=== PATIENT | male | born 1955 | race Caucasian/White ===

== ENCOUNTER 2017-01-20 07:17 | Outpatient (CLI) | payer BC, OTHER ==
[2017-01-20 12:36] LABS: BASOPHILS # (AUTO) 0.1 10^3/uL (0.0-0.1); BASOPHILS % (AUTO) 1.3 %; EOSINOPHILS # (AUTO) 0.3 10^3/uL (0.0-0.7); EOSINOPHILS % (AUTO) 5.5 %; HCT - HEMATOCRIT 43.4 % (42.0-52.0); HGB - HEMOGLOBIN 15.1 g/dL (14.0-18.0); LYMPHOCYTES # (AUTO) 1.9 10^3/uL (1.5-3.5); LYMPHOCYTES % (AUTO) 30.4 %; MEAN CORPUSCULAR HEMOGLOBIN 31.9 pg (27.0-31.0); MEAN CORPUSCULAR HGB CONC 34.8 g/dL (32.0-36.0); MEAN CORPUSCULAR VOLUME 91.7 fL (80.0-94.0); MEAN PLATELET VOLUME 8.2 fL (7.4-11.4); MONOCYTES # (AUTO) 0.5 10^3/uL (0.0-1.0); MONOCYTES % (AUTO) 8.3 %; NEUTROPHILS # (AUTO) 3.4 10^3/uL (1.5-6.6); NEUTROPHILS % (AUTO) 54.5 %; NUCLEATED RED BLOOD CELLS AUTO 0.2 /100WBC; RED BLOOD COUNT 4.73 10^6/uL (4.70-6.10); RED CELL DISTRIBUTION WIDTH 12.4 % (12.0-15.0); UNCORRECTED WHITE BLOOD COUNT 6.3 x10^3/uL; WHITE BLOOD COUNT 6.3 x10^3/uL (4.8-10.8)
[2017-01-20 12:51] LABS: ALBUMIN/GLOBULIN RATIO 1.4 (1.0-2.2); BILIRUBIN,TOTAL 0.7 mg/dL (0.2-1.0); CALCIUM 8.8 mg/dL (8.5-10.3); CREATININE 0.8 mg/dL (0.6-1.2); POTASSIUM 4.6 mmol/L (3.5-5.0); TOTAL PROTEIN 7.2 g/dL (6.7-8.2)
[2017-01-20 13:41] LABS: HEMOGLOBIN A1C 0.7 g/dL
== END 2017-01-20 07:18 | disposition home or self-care (01) ==
LOC: LAB.WCP 07:17
PROVIDERS: ATTEND Family Medicine
DX: R73.9 Hyperglycemia, unspecified (principal); Z79.01 Long term (current) use of anticoagulants; I10 Essential (primary) hypertension; Z12.5 Encounter for screening for malignant neoplasm of prostate
CPT/HCPCS: 36415; 80053; 83036; 84153; 85025

== ENCOUNTER 2017-05-19 14:36 | Outpatient (CLI) | payer BC | END 2017-05-19 14:37 | disposition critical access hospital (66) | LOC: EMS 14:36 | PROVIDERS: ATTEND Surgery | DX: R53.1 Weakness (principal); R46.4 Slowness and poor responsiveness | CPT/HCPCS: A0425; A0427 ==

== ENCOUNTER 2017-05-19 14:54 | Observation (INO) | payer BC ==
[2017-05-19] MEDS ORDERED: DEXAMETHASONE 10 MG/ML VIAL IVP STA (15:01)
[2017-05-19] MEDS ORDERED: SODIUM CHLORIDE 0.9% 1,000 ML IV ONE ×3 (15:01→16:18)
[2017-05-19 15:21] LABS: BASOPHILS % (AUTO) 0.4 %; EOSINOPHILS # (AUTO) 0.1 10^3/uL (0.0-0.7); EOSINOPHILS % (AUTO) 1.5 %; HGB - HEMOGLOBIN 15.8 g/dL (14.0-18.0); LYMPHOCYTES # (AUTO) 2.6 10^3/uL (1.5-3.5); LYMPHOCYTES % (AUTO) 25.6 %; MEAN CORPUSCULAR HEMOGLOBIN 30.3 pg (27.0-31.0); MEAN CORPUSCULAR HGB CONC 33.3 g/dL (32.0-36.0); MEAN CORPUSCULAR VOLUME 90.8 fL (80.0-94.0); MEAN PLATELET VOLUME 7.5 fL (7.4-11.4); MONOCYTES # (AUTO) 0.3 10^3/uL (0.0-1.0); MONOCYTES % (AUTO) 2.9 %; NEUTROPHILS # (AUTO) 6.9 10^3/uL (1.5-6.6); NEUTROPHILS % (AUTO) 69.6 %; PLT - PLATELET COUNT 326 10^3/uL (130-450); RED BLOOD COUNT 5.21 10^6/uL (4.70-6.10)
[2017-05-19 15:25] LABS: CALCIUM 8.5 mg/dL (8.5-10.3); CREATININE 1.5 mg/dL (0.6-1.2)
--- NOTE | 2017-05-19 15:41 | ED Physician Documentation ---
History of Present Illness - Stated complaint Stated Complaint: ALLERGIC REACTION - Chief complaint Chief Complaint: Allergic Rx - Additonal information Additional information: hx from pt and EMS fairly healthy 62 male was feeling finer earlier working outside clearing bushes and felt faint laid down no fall no CP or palp or dyspnea just sleepy and weak all over 911 called and EMS found pt with diffuse erythematous rash and some hives to posterior left arm, no airway swelling EMS gave epi and benadryl 50 and i L NS for presumed anaphyalxis ate a normal lunch no new dif food, no recent med changes no bites or stings no hx same arrives BP now over 100 in a fib RVR approx 120 he has a hx of DVT and is on couamdin Review of Systems Constitutional: denies: Fever, Chills Cardiac: denies: Chest pain / pressure, Palpitations Respiratory: denies: Dyspnea Skin: reports: Rash Neurologic: reports: Near syncope. denies: Focal weakness, Numbness, Headache, Head injury Endocrine: denies: Easy bruising / bleeding Immunocompromised: denies: Immunocompromised PD PAST MEDICAL HISTORY - Present Medications Home Medications: Ambulatory Orders Medication Instructions Recorded Confirmed Lisinopril 10 mg PO DAILY 05/19/17 05/19/17 Multivitamin [Theragran] 1 tab PO Q2D 05/19/17 05/19/17 Warfarin [Coumadin] 7.5 mg PO DAILY 05/19/17 05/19/17 - Allergies Allergies/Adverse Reactions: Allergies Allergy/AdvReac Type Severity Reaction Status Date / Time No Known Drug Allergies Allergy Verified 05/19/17 15:09 PD ED PE NORMAL - Vitals Vital signs reviewed: Yes - General General: Alert and oriented X 3 - HEENT HEENT: PERRL, Other (no oral edema). No: Moist mucous membranes (very dry) - Neck Neck: Supple, no meningeal sign - Cardiac Cardiac: RRR - Respiratory Respiratory: No respiratory distress, Clear bilaterally, Other (no wheeze) - Abdomen Abdomen: Soft, Non tender - Derm Derm: Other (diffuse erytehma to rorsoa, splthcy erythema to ext, some small hives to L upper arm, no insect stingers aor apparent bites found) - Neuro Neuro: Alert and oriented X 3 Results - Vitals Vitals: Vital Signs - 24 hr 05/19/17 05/19/17 05/19/17 15:01 15:23 15:31 Temperature 36.0 C L Heart Rate 117 H 124 H 125 H Respiratory 18 15 18 Rate Blood Pressure 106/61 98/67 92/59 L O2 Saturation 99 98 97 05/19/17 05/19/17 05/19/17 15:44 15:59 16:19 Temperature Heart Rate 127 H 121 H 126 H Respiratory 17 17 18 Rate Blood Pressure 105/58 L 116/90 H 100/68 O2 Saturation 97 96 98 Oxygen O2 Source Nasal cannula - EKG (time done) 1502 Rate: Rate (enter#) (102) Rhythm: Atrial fibrillation Ischemia: Normal ST segments - Labs Labs: Laboratory Tests 05/19/17 05/19/17 05/19/17 15:11 15:11 15:11 WBC 10.0 RBC 5.21 Hgb 15.8 Hct 47.3 MCV 90.8 MCH 30.3 MCHC 33.3 RDW 13.0 Plt Count 326 MPV 7.5 Neut # 6.9 H Lymph # 2.6 [place] # 0.3 Eos # 0.1 Baso # 0.0 Absolute Nucleated RBC 0.01 Nucleated RBC % 0.1 PT INR Sodium 137 Potassium 3.3 L Chloride 103 Carbon Dioxide 21 Anion Gap 13.0 BUN 20 Creatinine 1.5 H Estimated GFR (MDRD) 47 L Glucose 173 H Lactic Acid Calcium 8.5 Troponin I < 0.04 05/19/17 05/19/17 15:11 16:40 WBC RBC Hgb Hct MCV MCH MCHC RDW Plt Count MPV Neut # Lymph # [place] # Eos # Baso # Absolute Nucleated RBC Nucleated RBC % PT 33.1 H INR 3.1 H Sodium Potassium Chloride Carbon Dioxide Anion Gap BUN Creatinine Estimated GFR (MDRD) Glucose Lactic Acid 1.4 Calcium Troponin I - Rads (name of study) CXR Radiology: See rad report (NACPD) PD MEDICAL DECISION MAKING - ED course ED course: pt does have a rash - but no airway swelling or known trigger may well be anaphylaxis but in apparently new a fib and persistently hypotensive after epi benadyrl steroids his rash did resolve in ER which bolsters probability of anaphylaxis concern for alternate cause such as PE sepsis ACS etc INR 3.1 so doubt PE - GFR too low for CTPA CXR neg lactate neg so doubt sepsis neg trop pt does not feel palp so not clear if a fib is new today or just newly noted - so would want echo and cardio iinpur prior to considering cardioversion - in already on coumadin so should be sfe from anticoag point of view in any case 62 male with near syncope hypotension and new onset/noted a fib and possibly anaphyalaxis BP bewtter after 3 L NS now over 100, HR 120 but can't give rate control until BP higher still no CP SOA etc - stable - not emergently needing cardioversion or rate control will admit for echo and further cardiac work up as well as continued obs for anaphylaxis after receiving epi Departure - Departure Disposition: ED Place in Observation Clinical Impression: Atrial fibrillation with RVR, Near syncope Hypotension Qualifiers: Hypotension type: unspecified hypotension type Qualified Code(s): I95.9 - Hypotension, unspecified Anaphylaxis Qualifiers: Encounter type: initial encounter Qualified Code(s): T78.2XXA - Anaphylactic shock, unspecified, initial encounter Condition: Fair
[2017-05-19 15:57] LABS: INR 3.1 (0.8-1.2); PT - PROTHROMBIN TIME 33.1 secs (9.9-12.6)
--- NOTE | 2017-05-19 16:05 | XRAY Report ---
EXAM: CHEST RADIOGRAPHY EXAM DATE: 05/19/2017 03:53 PM. CLINICAL HISTORY: Hypotension. COMPARISON: 12/22/2007. TECHNIQUE: 1 view. FINDINGS: Lungs/Pleura: No focal opacities evident. No pleural effusion. No pneumothorax. Mediastinum: Within exam limitations, the cardiomediastinal contour is normal. Other: None. IMPRESSION: No acute cardiopulmonary abnormality. [facility] Referring Provider Line: [phone] SITE ID: [id number]
[2017-05-19] MEDS ORDERED: PROCHLORPERAZINE 10 MG/2 ML VIAL IVP PRN (17:41)
[2017-05-19] MEDS ORDERED: SODIUM CHLORIDE FLUSH 0.9% 10 ML SYRINGE IVP PRN (17:41)
[2017-05-19] MEDS ORDERED: oxyCODONE 5 MG TABLET PO PRN (17:41)
[2017-05-19] MEDS ORDERED: TEMAZEPAM 15 MG CAPSULE PO PRN (17:41)
--- NOTE | 2017-05-19 18:41 | HISTORY & PHYSICAL EXAMINATION ---
Chief Complaint - Chief Complaint Chief Complaint: Weakness and dizziness History of Present Illness - Admitted From Admitted From:: Work - History of Present Illness HPI Comment/Other: Mr. 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 Around the same time he also began to feel lightheaded and laid down. After this failed to improve things he was taken via EMS to the [facility] emergency department where he was found to be in atrial fibrillation with a rapid ventricular response between 110 and 120. This is new onset. While he was being transported in with EMS they gave him epinephrine for his rash and this did clear. He was mildly hypotensive, and this combined with the new onset atrial fibrillation with rapid ventricular response suggested that it would be prudent to admit him for observation overnight in telemetry bed. Of note is that the patient has a history of DVT and is already anticoagulated with an INR of 3. 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 : reports: None HEENT: reports: None Psych: reports: None Musculoskeletal: reports: None Derm: reports: None MRSA Hx?: No - Past Surgical History Cardiovascular: reports: Other (Surgical Retrieval of blood clots in his right foot) - Family & Social History Family History: Mother: , Cancer, Father: , [place] Living arrangement: At home Living Situation: Alone - Substance History Use: Uses substance without health or social issues: Tobacco Abuse 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 denies: Fever, Chills, Malaise, Diaphoresis - Eyes Eyes: denies: Pain, Irritation, Blurred vision, Dipolpia - Ears, Nose & Throat Ears, Nose & Throat: denies: Ear pain, Hearing loss, Hearing aids, Tinnitus, Vertigo, Nasal pain, Nasal discharge - Cardiovascular Cariovascular: reports: Irregular heart rate, Palpitations. denies: Chest pain , Edema, Lightheadedness, Syncope - Respiratory Respiratory: reports: SOB with exertion. denies: Cough, Sputum production, Wheezing, Hemoptysis, Orthopnea - Gastrointestinal Gastrointestinal: denies: Abdominal pain, Abdominal distention, Constipation, Diarrhea, Change in bowel habits, Rectal bleeding - Genitourinary Genitourinary: denies: Dysuria, Frequency, Urgency, Hematuria - Musculoskeletal Musculoskeletal: denies: Muscle pain, Back pain, Muscle aches, Stiffness - Integumentary Integumentary: reports: Rash. denies: Pruritis, Lesions, Acne - Neurological Neurological: denies: General weakness, Focal weakness, Headache, Dizziness - Psychiatric Psychiatric: denies: Depression, Anxiety, Suicidal, Hallucinations - Endocrine Endocrine: denies: Polyuria, Polydypsia, Polyphagia - Hematologic/Lymphatic Hematologic/Lymphatic: denies: Anemia, Bruising, Lymphadenopathy - All Other Systems All Other Systems: reports: Reviewed and negative Exam - Vital Signs Reviewed Vital Signs: Yes Vital Signs: Vital Signs x48h Pulse Resp BP Pulse Ox 05/19/17 17:51 100 16 138/79 H 96 - Physical Exam General Appearance: positive: No acute distress, Alert Eyes Bilateral: positive: Normal inspection, PERRL, EOMI ENT: positive: ENT inspection nml, Pharynx nml, No signs of dehydration Neck: positive: Nml inspection, Thyroid nml, No JVD, Trachea midline. negative : Thyromegaly Respiratory: positive: Chest non-tender, No respiratory distress, Breath sounds nml. negative: Wheezes, Rales, Rhonchi Cardiovascular: positive: No murmur, No gallop, Irregularly irregular Peripheral Pulses: positive: 1+ Abdomen: positive: Non-tender, No organomegaly, Nml bowel sounds, No distention. negative: Guarding, Rebound Back: positive: Nml inspection. negative: CVA tenderness (R), CVA tenderness (L ) Skin: positive: Color nml, No rash, Warm, Dry. negative: Cyanosis Extremities: positive: Non-tender, Full ROM, Nml appearance, No pedal edema Neurologic/Psychiatric: positive: Oriented x3, CN's nml (2-12), Motor nml, Sensation nml, Mood/affect nml Conclusion/Plan - Problem List (1) Atrial fibrillation with RVR Conclusion/Plan: Unsure of etiology or duration. The patient is coincidentally already anticoagulated because of his long history of DVT.We will admit him to a telemetry bed and monitor him overnight and give him a calcium channel kenji to slow his heart rate down. (2) Near syncope Conclusion/Plan: Almost definitely secondary to the new onset atrial fibrillation and associated hypotension (3) Hypotension Conclusion/Plan: Improving, will continue with IV fluids Qualifiers: Hypotension type: unspecified hypotension type Qualified Code(s): I95.9 - Hypotension, unspecified - Lab Results Lab results reviewed: Yes Fish Bones: 05/19/17 15:11 05/19/17 15:11 - Diagnostic Imaging Results Diagnostic Imaging Results: positive: Final report reviewed Diagnostic Imaging Results Comments: EXAM: CHEST RADIOGRAPHY EXAM DATE: 05/19/2017 03:53 PM. CLINICAL HISTORY: Hypotension. COMPARISON: 12/22/2007. TECHNIQUE: 1 view. FINDINGS: Lungs/Pleura: No focal opacities evident. No pleural effusion. No pneumothorax. Mediastinum: Within exam limitations, the cardiomediastinal contour is normal. Other: None. IMPRESSION: No acute cardiopulmonary abnormality. - EKG Results EKG Interpreted Independently: Yes EKG Comparison: Old EKG unavailable EKG Findings: Atrial fibrillation with rapid ventricular response Core Measures - Anticipated LOS I expect patient to be DC'd or transferred within 96 hours.: Yes - DVT/VTE - Prophylaxis VTE/DVT Device ordered at admit?: No VTE/DVT Prophylaxis med ordered at admit?: Yes
[2017-05-19 20:08] LABS: MUDS CUTOFF CONCENTRATIONS CUTOFF CONC BELOW:
[2017-05-19 20:10] LABS: BILIRUBIN,URINE NEGATIVE (NEGATIVE); GLUCOSE, URINE (UA) NEGATIVE (NEGATIVE); KETONES,URINE (UA) NEGATIVE (NEGATIVE); LEUKOCYTE ESTERASE, URINE NEGATIVE (NEGATIVE); NITRITE,URINE NEGATIVE (NEGATIVE); OCCULT BLOOD,URINE NEGATIVE (NEGATIVE); PROTEIN,URINE NEGATIVE (NEGATIVE); UROBILINOGEN,URINE 0.2 (NORMAL) E.U./dL (NORMAL)
[2017-05-19] MEDS: D5.45NS W/20 MEQ KCL 1,000 ML IV SCH (20:12)
[2017-05-19 20:14] LABS: CLARITY,URINE CLEAR (CLEAR)
[2017-05-19 20:20] LABS: AMPHETAMINE SCREEN,URINE NEGATIVE (NEGATIVE); BENZODIAZEPINES SCREEN, URINE NEGATIVE (NEGATIVE); COCAINE SCREEN URINE NEGATIVE (NEGATIVE); METHADONE SCREEN, URINE NEGATIVE (NEGATIVE); METHAMPHETAMINES SCREEN, URINE NEGATIVE (NEGATIVE); OPIATE SCREEN, URINE NEGATIVE (NEGATIVE); OXYCODONE SCREEN, URINE NEGATIVE (NEGATIVE); PROPOXYPHENE SCREEN, URINE NEGATIVE (NEGATIVE); TRICYCLIC ANTIDEPRESSANT,URINE NEGATIVE (NEGATIVE)
[2017-05-19] MEDS: SODIUM CHLORIDE FLUSH 0.9% 10 ML SYRINGE IVP SCH (20:27)
[2017-05-20] MEDS: SODIUM CHLORIDE FLUSH 0.9% 10 ML SYRINGE IVP SCH ×2 (05:26→14:20)
[2017-05-20] MEDS: D5.45NS W/20 MEQ KCL 1,000 ML IV SCH (07:36)
[2017-05-20] MEDS ORDERED: FAMOTIDINE 20 MG TABLET PO SCH (09:00)
[2017-05-20] MEDS ORDERED: LISINOPRIL 5 MG TABLET PO SCH (09:00)
[2017-05-20] MEDS ORDERED: ENOXAPARIN 40 MG/0.4 ML SYRINGE SUBQ SCH (09:00)
[2017-05-20] MEDS ORDERED: POLYETHYLENE GLYCOL 3350 17 GM PACKET PO SCH (09:00)
[2017-05-20 09:08] LABS: BASOPHILS # (AUTO) 0.1 10^3/uL (0.0-0.1); BASOPHILS % (AUTO) 0.9 %; EOSINOPHILS % (AUTO) 0.2 %; LYMPHOCYTES # (AUTO) 1.2 10^3/uL (1.5-3.5); LYMPHOCYTES % (AUTO) 10.4 %; MEAN CORPUSCULAR HEMOGLOBIN 31.2 pg (27.0-31.0); MEAN CORPUSCULAR HGB CONC 33.4 g/dL (32.0-36.0); MEAN CORPUSCULAR VOLUME 93.5 fL (80.0-94.0); MEAN PLATELET VOLUME 7.7 fL (7.4-11.4); MONOCYTES # (AUTO) 0.5 10^3/uL (0.0-1.0); NEUTROPHILS # (AUTO) 10.2 10^3/uL (1.5-6.6); NEUTROPHILS % (AUTO) 84.5 %; PLT - PLATELET COUNT 303 10^3/uL (130-450); RED BLOOD COUNT 4.49 10^6/uL (4.70-6.10); RED CELL DISTRIBUTION WIDTH 13.5 % (12.0-15.0)
[2017-05-20 09:11] LABS: CALCIUM 8.2 mg/dL (8.5-10.3); CREATININE 0.9 mg/dL (0.6-1.2)
[2017-05-20 09:37] LABS: RBC MORPHOLOGY (MULTIPLE) 1+ ANISOCYTOSIS (NORMAL)
--- NOTE | 2017-05-20 14:02 | DISCHARGE SUMMARY ---
Discharge Summary Admit Date: 05/19/17 Discharge Date: 05/20/17 Discharging Provider: Kathleen Gonzalez DO Primary Care Provider: Sohan Ho Code Status: Attempt Resuscitation Condition at Discharge: Fair - DIAGNOSES Admission Diagnoses: 1) New Onset Atrial Fibrillation with RVR 2) Near Syncope and collapse 3) Hypotension, unspecified Discharge Diagnoses with Status of Each Condition: 1) New Onset Atrial Fibrillation with RVR- The patient's ventricular rate is now well controlled and within normal limits. It is unclear as to the etiology of his new onset atrial fibrillation, which could be due to the epinephrine he received from EMS or some other etiology. He remains anticoagulated as he had been on his initial admission due to his treatment of his DVTs. He will follow- up with a community director of compliance and his primary care physician. 2) Near Syncope and collapse- Almost certainly due to the new onset atrial fibrillation with RVR and associated hypotension. 3) Hypotension, unspecified - Resolved. The patient is asymptomatic at this time. - HPI History of Present Illness: Mr. 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 Around the same time he also began to feel lightheaded and laid down. After this failed to improve things he was taken via EMS to the [facility] emergency department where he was found to be in atrial fibrillation with a rapid ventricular response between 110 and 120. This is new onset. While he was being transported in with EMS they gave him epinephrine for his rash and this did clear. He was mildly hypotensive, and this combined with the new onset atrial fibrillation with rapid ventricular response suggested that it would be prudent to admit him for observation overnight in telemetry bed. Of note is that the patient has a history of DVT and is already anticoagulated with an INR of 3. - HOSPITAL COURSE Hospital Course: The patient was admitted to an observation bed and his rate was controlled with his use of medications. His symptoms have resolved and his rash has resolved as well. He has no new complaints it is now wishing only for discharge home. He agrees to follow-up with his primary care physician and a local director of compliance. He will continue with his anticoagulation. - ALLERGIES Allergies/Adverse Reactions: Allergies Allergy/AdvReac Type Severity Reaction Status Date / Time No Known Drug Allergies Allergy Verified 05/19/17 15:09 - MEDICATIONS Home Medications: Ambulatory Orders Medication Instructions Recorded Confirmed Lisinopril 10 mg PO DAILY 05/19/17 05/19/17 Multivitamin [Theragran] 1 tab PO Q2D 05/19/17 05/19/17 Warfarin [Coumadin] 7.5 mg PO DAILY 05/19/17 05/19/17 - PHYSICAL EXAM AT DISCHARGE General Appearance: positive: No acute distress, Alert Eyes Bilateral: positive: Normal inspection, PERRL, EOMI ENT: positive: ENT inspection nml, Pharynx nml, No signs of dehydration, Other ( Poor dentition) Neck: positive: Nml inspection, Thyroid nml, No JVD, Trachea midline. negative : Thyromegaly Respiratory: positive: Chest non-tender, No respiratory distress, Breath sounds nml. negative: Wheezes, Rales, Rhonchi Cardiovascular: positive: Regular rate & rhythm, No murmur, No gallop, Irregularly irregular. negative: Extrasystoles Peripheral Pulses: positive: 1+ Abdomen: positive: Non-tender, No organomegaly, Nml bowel sounds, No distention. negative: Guarding, Rebound Back: positive: Nml inspection. negative: CVA tenderness (R), CVA tenderness (L ) Skin: positive: Color nml, No rash, Warm, Dry. negative: Cyanosis Extremities: positive: Non-tender, Full ROM, Nml appearance, No pedal edema Neurologic/Psychiatric: positive: Oriented x3, CN's nml (2-12), Motor nml, Sensation nml, Mood/affect nml - LABS Result Diagrams: 05/20/17 08:57 05/20/17 08:57 - DIAGNOSTIC IMAGING Diagnostic Imaging Results: Final report reviewed - FOLLOW UP Follow Up: The patient will follow up with his primary care physician, Dr. Ho, and a director of compliance in the community. - TIME SPENT Time Spent in Discharge (Minutes): 45
--- NOTE | 2017-05-20 14:09 | Discharge Plan ---
Discharge Plan Disposition: 01 Home, Self Care Condition: Fair Diet: Cardiac Activity Restrictions: Activity as Tolerated Shower Restrictions: No Driving Restrictions: No Weight Bearing: Full Weight (Continue to take your Coumadin as directed) No Smoking: If you smoke, Please STOP! Call for help. Follow-up with: Woo Ho MD [Primary Care Provider] -
[2017-05-20 14:21] VITALS: BP 121/77
== END 2017-05-20 14:35 | disposition home or self-care (01) ==
LOC: EDUNIT# → ED 14:54 → OBS 17:41
PROVIDERS: ADMIT Hospitalist; ATTEND Hospitalist
DX: I48.91 Unspecified atrial fibrillation (principal); R55 Syncope and collapse; I95.9 Hypotension, unspecified; R21 Rash and other nonspecific skin eruption; Z79.01 Long term (current) use of anticoagulants; Z79.899 Other long term (current) drug therapy; Z86.718 Personal history of other venous thrombosis and embolism; Z87.891 Personal history of nicotine dependence
CPT/HCPCS: 36415; 71045; 80048; 80306; 81003; 83605; 84484; 85025; 85610; 87040; 93005; 96361; 96374; 99284; A9270; G0378; 81001; 87086; 99283

== ENCOUNTER 2018-07-26 12:59 | Outpatient (CLI) | payer BC | END 2018-07-26 13:00 | disposition critical access hospital (66) | LOC: EMS 12:59 | PROVIDERS: ATTEND Surgery | DX: I46.9 Cardiac arrest, cause unspecified (principal) | CPT/HCPCS: A0425; A0427 ==

== ENCOUNTER 2018-07-26 13:18 | Emergency (ER) | payer BC ==
--- NOTE | 2018-07-26 13:21 | ED Physician Documentation ---
PD HPI CPR - Stated complaint Stated Complaint: CPR - History obtained from History obtained from: EMS - History of Present Illness Timing - onset: Today (This is a 63-year-old gentleman with [id number] cardiac arrest. On arrival he has been pulseless for about 70 minutes. He had bystander CPR initially, and then per report of the paramedics they thought maybe he was in V. fib initially and was shocked. He was also shocked with an AED prior to head esthetician arrival. On arrival now here he has been asystolic for 60 minutes with 9 rounds of epinephrine and no pulse, no appreciable cardiac activity on monitor.) Review of Systems Unable to obtain: Intubated PD PAST MEDICAL HISTORY - Past Medical History Cardiovascular: Other Respiratory: None Endocrine/Autoimmune: None GI: Colon polyps PROFESSOR OF CRIMINAL JUSTICE: None : None HEENT: None Psych: None Musculoskeletal: Osteoarthritis Derm: None - Past Surgical History Ortho: Other Cardiovascular: Other - Present Medications Home Medications: Ambulatory Orders Medication Instructions Recorded Confirmed Multivitamin [Theragran] 1 tab PO Q2D 05/19/17 07/13/17 Warfarin [Coumadin] 7.5 mg PO DAILY 05/19/17 07/13/17 - Allergies Allergies/Adverse Reactions: Allergies Allergy/AdvReac Type Severity Reaction Status Date / Time No Known Drug Allergies Allergy Verified 05/19/17 15:09 - Social History Smoking Status: Current every day smoker - POLST Patient has POLST: No POLST Status: Full Code PD ED PE NORMAL - Vitals Vital signs reviewed: No (no vitals) - General General: Other (He is pulseless, asystolic on the monitor, he has dependent lividity, pupils are fixed and dilated.) - Cardiac Cardiac: Other (There is no cardiac motion on ultrasound) Results - Vitals Vitals: Oxygen O2 Source Room air PD MEDICAL DECISION MAKING - ED course ED course: This is a 63-year-old gentleman who presents with [id number] cardiac arrest, on arrival he has been pulseless for 70 minutes, 60 minutes has been in asystole. The efforts were called basically on arrival due to futility. Departure - Departure Disposition: 20 Clinical Impression: Sudden cardiac
== END 2018-07-26 14:39 | disposition expired ==
LOC: EDUNIT# → ED 13:18
DX: I46.9 Cardiac arrest, cause unspecified (principal); F17.200 Nicotine dependence, unspecified, uncomplicated
CPT/HCPCS: 99283; 99285